=== PATIENT | female | born 1935 | race Caucasian/White ===

== ENCOUNTER → 2016-06-14 | Outpatient (CLI) | payer OTHER, MEDICARE ==
[2015-06-17 12:59] VITALS: BP 146/77; PULSE 81
[~2016-06-14] MED LIST: ALBU1AER9 INH; AMLO-110 PO; ASPI-391 PO; ASPI81TA28 PO; ATEN50TA8 PO; CALCTAB7 PO; COEN1CAP17 PO; DIPH25CA37 PO; LOSA1TAB38 PO; MULT-513 PO; NSP500 PO; RANI150T3 PO
[2016-06-14 12:52] VITALS: BP 118/80; PULSE 72; TEMP 36.6; O2SAT 94
--- NOTE | 2016-06-14 14:01 | Radiation Oncology Follow-Up ---
Radiation Oncology Follow-Up Date of Visit Jun 14, 2016. Reason For Visit Annual follow-up Radiation Completion Date 11/11/14 Diagnosis (1) Malignant neoplasm of left breast, stage 2 Status: Resolved Onset Date: 06/18/2014 Histology Subtype: ductal Stage: ll Permanent Comment: Abnormal routine screening mammogram 05/20/2014 Status post ultrasound-guided biopsy 06/18/2014 invasive ductal carcinoma Estrogen receptor and progesterone receptor negative HER-2/wally positive Status post left partial mastectomy 07/02/2014 stage pT2 pN0 M0 grade 2 Reexcision 08/01/2014 reveals no carcinoma Status post completion of radiation therapy 11/11/2014 received 6120 cGy Last Edited By: Inge Dennis on Nov 27, 2014 16:54 History of Present Illness Ms. Godwin is an 81-year-old female who has a family history of breast cancer. The patient's mother was diagnosed with breast cancer at age 87. She was treated with a mastectomy and at age 89. She has been followed with serial mammograms. On 05/20/2014 patient underwent bilateral screening mammograms. This was compared to her most recent mammogram from 10/30/2012. This new mammogram showed an irregular spiculated 2 cm mass in the left upper outer quadrant. Additional imaging was recommended. On 05/28/2014 patient underwent a unilateral left digital diagnostic mammogram and targeted left ultrasound. This showed an irregular spiculated mass left upper outer quadrant at approximately 2:00 measuring 1.9 x 1.9 cm. Targeted ultrasound of the left upper outer quadrant of the left breast at the 2 o'clock position 3 cm from the nipple identified an irregular hypoechoic solid mass measuring 1.7 x 1.4 x 1.9 cm. This correlates with the mammographic mass and was highly suspicious. This is given a BI-RADS Category 5 with biopsy recommended. On 06/18/2014 patient underwent an ultrasound-guided left breast biopsy. This confirmed an invasive ductal carcinoma, Tea grade 2 of 3, involving multiple cores and measuring at least 0.7 cm in greatest dimension. No lymphovascular invasion is seen. The tumor cells are negative for estrogen receptor (0%) and progesterone receptors (0%) however no internal controls were present for this evaluation and it was recommended that these be repeated. The tumor cells were positive for HER-2/wally (3+). HER-2/wally by FISH analysis was also positive. Case: [id number]. Patient was seen by Dr. Bernabe Mayorga to discuss the surgical treatment options. The patient chose to proceed with a breast conserving therapy. Therefore on 07/06/2014 patient underwent a left breast partial mastectomy and sentinel lymph node biopsy. 2 sentinel nodes were identified and both were negative. 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 This was moderately differentiated with a Bolckow grade 2 of 3. The tumor measured 3.0 x 2.0 x 1.5 cm. The infiltrative ductal adenocarcinoma is located greater than 1 cm from all inked margins. An in situ component is not identified in sections from the tumor mass. 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 There are no lymphovascular invasion and no perineural invasion. Estrogen and progesterone receptors were repeated on this tissue and both were negative with 0% staining. Adequate internal controls were noted. Case: [id number]. The AJCC staging is pT2 pN0(i-) ER negative NM negative HER-2/wally positive. With the question of a possible positive lateral margin Dr. Mayorga is planning on proceeding with a reexcision on August 07. This was performed and there was no residual carcinoma. She returned to our office to undergo radiation therapy. Interim History She's been doing well over this past year. She denies any changes to her breast. She's noted no masses or tenderness no change of the axilla. She has noticed no swelling of her arm. She is up-to-date on mammography. She had a mammogram 01/26/2016. This showed stable mammographic appearance of the left breast status post treatment for breast cancer, without definite mammographic evidence of malignancy. Follow-up bilateral mammogram is due in 6 months to ensure 2 years of stability posttreatment. Allergies Coded Allergies: Ciprofloxacin (Verified Allergy, Severe, ANAPHYLAXIS, 02/03/15) facial swelling Nitrofurantoin (Unverified Allergy, Severe, rash/hives, 02/03/15) possible reaction of macrobid, rash and hives Penicillins (Verified Allergy, Unknown, unknown, 02/03/15) 01/28/15: Patient reported reaction was 65+ years ago and she believes she has tolerated penicillins since then. Home Medications Scheduled Amlodipine (Norvasc), 10 MG PO DAILY Aspirin (Aspirin Ec), 81 MG PO DAILY Atenolol (Tenormin), 50 MG PO DAILY Calcium Carbonate-Vitamin D W/ (Caltrate 600 Plus), 1 TAB PO BID Coenzyme Q10 (Ubidecarenone) (Co Q 10), 100 MG PO DAILY Losartan Potassium (Cozaar), 100 MG PO DAILY Multivitamins/Minerals (Mvi With Minerals), 1 TAB PO DAILY Niacin Ext Rel (Niaspan Ext Rel), 1,000 MG PO BID Scheduled PRN Albuterol (Proair Hfa), 2 PUFFS INH QID PRN for SOB/Wheezing Diphenhydramine Hcl (Benadryl), 25-50 MG PO Q6 PRN for ALLERGIC REACTION Review of Systems Gastrointestinal: Symptoms: WNL Oral: Symptoms: No Problems Other Oral Symptoms: one episode of feeling like throat closing diff swallowing Respiratory: Symptoms: WNL Urinary: Symptoms: WNL Skin: Symptoms: No Problems Breast: Right Upper Arm Measurement: 31.8 Right Mid Arm Measurement: 24.0 Right Wrist Measurement: 15.9 Left Upper Arm Measurement: 34.2 Left Mid Arm Measurement: 26.6 Left Wrist Measurement: 16.4 Arm Dominence: Left Patient Cosmetic Evaluation: Good Staff Cosmetic Evalaluation: Good Physical Exam Vital Signs Date Time Temp Pulse Resp B/P Pulse Ox O2 Delivery O2 Flow Rate FiO2 06/14/16 12:52 36.6 72 18 118/80 94 Pain: Pain Location: None Patient Pain Scale: 0 - 10 Initial Pain Intensity: 0.0 Fatigue: None General Appearance: no apparent distress Eyes: normal inspection, EOMI Neck: no adenopathy Respiratory/Chest: lungs clear, no respiratory distress, no accessory muscle use Breast: Breast examination reveals well-healed incisions of the left breast. There are no masses or tenderness and no axillary adenopathy. She does have an oval area of hyperpigmentation. Using the [place] score cosmesis she has a good outcome. The right breast showed no masses or tenderness no axillary adenopathy. Cardiovascular: regular rate, rhythm, no gallop, no murmur Abdomen: non tender, soft Extremities: no pedal edema Neurologic/Psychiatric: no motor/sensory deficits, alert, normal mood/affect Skin: warm/dry Lymphatic: no adenopathy Additional Studies UNILATERAL LEFT DIGITAL DIAGNOSTIC MAMMOGRAM 3D/2D WITH CAD: 01/26/2016 CLINICAL HISTORY: Third follow-up of the left breast status post treatment for left breast cancer. Comparison is made to exams dated: 07/26/2015 mammogram, 01/21/2015 ultrasound, mammogram, and 05/28/2014 mammogram - [facility]. FINDINGS: Left CC and MLO 2-D digital and tomosynthesis images, spot magnification left CC and ML views were obtained. There are scattered areas of fibroglandular density in the left breast. Current study was also evaluated with a Computer Aided Detection (CAD) system. There is expected architectural distortion with associated surgical clips in the upper outer anterior left breast, at the site of prior lumpectomy. There are stable benign rodlike and punctate microcalcifications scattered throughout the left breast. No new suspicious mass, architectural distortion or cluster of microcalcifications is seen. IMPRESSION: ACR-BI-RADS CATEGORY 3: PROBABLY BENIGN Stable mammographic appearance of the left breast status post treatment for breast cancer, without definite mammographic evidence of malignancy. Follow-up bilateral mammography is due in 6 months to ensure 2 years of stability posttreatment. These results and recommendations were discussed with the patient at the time of the exam. Approximately 10% of breast cancers are not detected with mammography. A negative mammographic report should not delay biopsy if a clinically suggestive mass is present. Julieth Nagy M.D. ay/:01/26/2016 12:01:38 Assessment & Plan Plan: She is scheduled for recheck mammography in July. Continue regular follow-up with Dr. Mayorga and Dr. Fitzgerald. We asked her to return to our office in 1 year. She may call if she has any questions or concerns in the interim. The upper arm measurements were reviewed. Remeasurement showed these to be compatible with the year prior. There is no significant swelling of the left upper extremity. Total Time In Follow-Up I spent 15 minutes speaking to the patient and performing examination. I spent 15 minutes reviewing information in completing this note. Copy To Bernabe Mayorga M.D.; Chandler Edwards M.D.
== END | disposition home or self-care (01) ==
LOC: C.ONC 12:43
PROVIDERS: ATTEND Radiology Radiation Oncology
DX: Z08 Encounter for follow-up examination after completed treatment for malignant neoplasm (principal); Z92.3 Personal history of irradiation; Z85.3 Personal history of malignant neoplasm of breast

== ENCOUNTER → 2016-07-28 | Outpatient (CLI) | payer OTHER, MEDICARE ==
[~2016-07-28] MED LIST changes: -ASPI-391 PO; -RANI150T3 PO
--- NOTE | 2016-07-28 14:32 | MAMMOGRAPHY REPORT ---
BILATERAL DIGITAL DIAGNOSTIC MAMMOGRAM TOMOSYNTHESIS WITH CAD: 07/28/2016 CLINICAL HISTORY: History of left breast cancer status post lumpectomy 07/02/2014. The patient repor ts no current complaints. TECHNIQUE: Breast tomosynthesis in addition to standard 2D mammography was performed. Current study was also evaluated with a Computer Aided Detection (CAD) system. Bilateral CC and MLO 2-D and amy synthesis images and spot magnification left CC and ML views were obtained. COMPARISON: Comparison is made to exams dated: 01/26/2016 mammogram, 07/26/2015 mammogram, 06/18/2014 m ammogram, 05/20/2014 mammogram, 10/30/2012 mammogram, and 10/18/2011 mammogram - [facility] [address]. BREAST COMPOSITION: There are scattered areas of fibroglandular density in both breasts. FINDINGS: There are stable postsurgical changes in the left upper outer quadrant from prior lumpecto my, including stable architectural distortion, density, and surgical clips at the lumpectomy bed. S pot magnification views of the lumpectomy bed demonstrate no suspicious masses or clusters of microc alcifications. The remainder of both breasts are stable compared to prior exams, without suspicious masses, calcifi cations, or areas of architectural distortion noted. Scattered bilateral benign-appearing calcifica tions are not significantly changed. IMPRESSION: ACR BI-RADS CATEGORY 2: BENIGN There is no mammographic evidence of malignancy. A 1 year screening mammogram is recommended. The p atient has been verbally notified of the results. Approximately 10% of breast cancers are not detected with mammography. A negative mammographic repor t should not delay biopsy if a clinically suggestive mass is present. Natasha Tinoco M.D. /:07/28/2016 10:50:34 International Marketing Intern: Trinidad SPEARS)(Carlo), [facility] letter sent: Normal 1/2 BI-RADS Code: ACR BI-RADS Category 2: Benign
== END | disposition home or self-care (01) ==
LOC: C.MAMM 10:17
PROVIDERS: ATTEND Surgery
DX: Z85.3 Personal history of malignant neoplasm of breast (principal)

== ENCOUNTER → 2017-06-19 | Outpatient (CLI) | payer OTHER, MEDICARE ==
[2015-06-17 12:59] VITALS: BP 146/77; PULSE 81
[~2017-06-19] MED LIST changes: +KRIL1000 PO
[2017-06-19 13:02] VITALS: BP 115/79; PULSE 100; TEMP 36.9; O2SAT 95
--- NOTE | 2017-06-19 14:02 | Radiation Oncology Follow-Up ---
Radiation Oncology Follow-Up Date of Visit Jun 19, 2017. Reason For Visit Annual follow-up Radiation Completion Date 11/11/14 Diagnosis (1) Malignant neoplasm of left breast, stage 2 Status: Resolved Onset Date: 06/18/2014 Histology Subtype: ductal Stage: ll Permanent Comment: Abnormal routine screening mammogram 05/20/2014 Status post ultrasound-guided biopsy 06/18/2014 invasive ductal carcinoma Estrogen receptor and progesterone receptor negative HER-2/wally positive Status post left partial mastectomy 07/02/2014 stage pT2 pN0 M0 grade 2 Reexcision 08/01/2014 reveals no carcinoma Status post completion of radiation therapy 11/11/2014 received 6120 cGy Last Edited By: Inge Dennis on Nov 27, 2014 16:54 History of Present Illness Ms. Godwin has a family history of breast cancer. The patient's mother was diagnosed with breast cancer at age 87. She was treated with a mastectomy and at age 89. She has been followed with serial mammograms. On 05/20/2014 patient underwent bilateral screening mammograms. This was compared to her most recent mammogram from 10/30/2012. This new mammogram showed an irregular spiculated 2 cm mass in the left upper outer quadrant. Additional imaging was recommended. On 05/28/2014 patient underwent a unilateral left digital diagnostic mammogram and targeted left ultrasound. This showed an irregular spiculated mass left upper outer quadrant at approximately 2:00 measuring 1.9 x 1.9 cm. Targeted ultrasound of the left upper outer quadrant of the left breast at the 2 o'clock position 3 cm from the nipple identified an irregular hypoechoic solid mass measuring 1.7 x 1.4 x 1.9 cm. This correlates with the mammographic mass and was highly suspicious. This is given a BI-RADS Category 5 with biopsy recommended. On 06/18/2014 patient underwent an ultrasound-guided left breast biopsy. This confirmed an invasive ductal carcinoma, Tea grade 2 of 3, involving multiple cores and measuring at least 0.7 cm in greatest dimension. No lymphovascular invasion is seen. The tumor cells are negative for estrogen receptor (0%) and progesterone receptors (0%) however no internal controls were present for this evaluation and it was recommended that these be repeated. The tumor cells were positive for HER-2/wally (3+). HER-2/wally by FISH analysis was also positive. Case: [id number]. Patient was seen by Dr. Bernabe Mayorga to discuss the surgical treatment options. The patient chose to proceed with a breast conserving therapy. Therefore on 07/06/2014 patient underwent a left breast partial mastectomy and sentinel lymph node biopsy. 2 sentinel nodes were identified and both were negative. 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 This was moderately differentiated with a Tea grade 2 of 3. The tumor measured 3.0 x 2.0 x 1.5 cm. The infiltrative ductal adenocarcinoma is located greater than 1 cm from all inked margins. An in situ component is not identified in sections from the tumor mass. 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 There are no lymphovascular invasion and no perineural invasion. Estrogen and progesterone receptors were repeated on this tissue and both were negative with 0% staining. Adequate internal controls were noted. Case: [id number]. The AJCC staging is pT2 pN0(i-) ER negative [place] negative HER-2/wally positive. With the question of a possible positive lateral margin Dr. Mayorga is planning on proceeding with a reexcision on August 07. This was performed and there was no residual carcinoma. She returned to our office to undergo radiation therapy. Interim History She's been doing well over this past year. She denies any changes to her breast. She denied any areas of tenderness. She is noted no masses and no change of the axilla. She's had no swelling of her arm. She is up-to-date on mammography. She had a mammogram 07/28/2016. There is no mammographic evidence of malignancy. A one-year screening mammogram was recommended. BI- RADS Category 2. She was seen in follow-up by the breast surgeon 11/29/2016. She was discharged from surgical follow-up at that time. Allergies Coded Allergies: Ciprofloxacin (Verified Allergy, Severe, ANAPHYLAXIS, 02/03/15) facial swelling Nitrofurantoin (Unverified Allergy, Severe, rash/hives, 02/03/15) possible reaction of macrobid, rash and hives Penicillins (Verified Allergy, Unknown, unknown, 02/03/15) 01/28/15: Patient reported reaction was 65+ years ago and she believes she has tolerated penicillins since then. Home Medications Scheduled Amlodipine (Norvasc), 10 MG PO DAILY Aspirin (Aspirin Ec), 81 MG PO DAILY Atenolol (Tenormin), 50 MG PO DAILY Calcium Carbonate-Vitamin D W/ (Caltrate 600 Plus), 1 TAB PO BID Coenzyme Q10 (Ubidecarenone) (Co Q 10), 100 MG PO DAILY Krill Oil (Krill Oil), 1 CAP PO DAILY Losartan Potassium (Cozaar), 100 MG PO DAILY Multivitamins/Minerals (Mvi With Minerals), 1 TAB PO DAILY Niacin Ext Rel (Niaspan Ext Rel), 1,000 MG PO BID Scheduled PRN Albuterol (Proair Hfa), 2 PUFFS INH QID PRN for SOB/Wheezing Diphenhydramine Hcl (Benadryl), 25-50 MG PO Q6 PRN for ALLERGIC REACTION Review of Systems Gastrointestinal: Symptoms: WNL Oral: Symptoms: No Problems Other Oral Symptoms: one episode of feeling like throat closing diff swallowing Respiratory: Symptoms: SOB With Exertion Urinary: Symptoms: WNL Skin: Symptoms: No Problems Breast: Right Upper Arm Measurement: 32.8 Right Mid Arm Measurement: 24.5 Right Wrist Measurement: 16.0 Left Upper Arm Measurement: 32.8 Left Mid Arm Measurement: 26.8 Left Wrist Measurement: 17.0 Arm Dominence: Left Patient Cosmetic Evaluation: Good Staff Cosmetic Evalaluation: Good Physical Exam Vital Signs Date Time Temp Pulse Resp B/P (MAP) Pulse Ox O2 Delivery O2 Flow Rate FiO2 06/19/17 13:02 36.9 100 20 115/79 95 Fatigue: None General Appearance: no apparent distress Eyes: normal inspection, EOMI ENT: normal ENT inspection, hearing grossly normal Neck: no adenopathy, thyroid normal Respiratory/Chest: lungs clear, no respiratory distress, no accessory muscle use Breast: Breast examination reveals well-healed incisions of the left breast. There is a 4 cm area of telangiectasia in the lateral aspect of the breast. There are no masses or tenderness no axillary adenopathy. She has no skin retractions or nipple changes. Using the [place] score cosmesis she has a good outcome. The right breast showed no masses or tenderness and no axillary adenopathy. Cardiovascular: regular rate, rhythm, no gallop, no murmur Abdomen: non tender Extremities: no pedal edema Neurologic/Psychiatric: no motor/sensory deficits, alert, normal mood/affect Skin: warm/dry Pain Management Patient Reports Pain: No Patient Preferred Pain Scale: 0 - 10 Initial Pain Intensity: 0.0 Pain Management Plan She denied pain therefore requires no pain management. Laboratory Laboratory Results: not applicable Pathology Pathology Results: not applicable Imaging Imaging Studies: were reviewed, and pertinent findings noted below Imaging Comments Patient: CODY GODWIN [facility] Rec: [id number] Address1: [address] [place] [address] [facility]: [id number] Date: 1935 Sex: F Ref Phy: Jeri Miller D.O. Att Phy: Bernabe Mayorga M.D. Abena Phy: Jeri Miller D.O. Inter Phy: Natasha Tinoco MD [facility] Zip: [place] [address] SC: C.MAMM Report #: [id number] Sales Service Supervisor: VENUS Diagnosis: 6 MO F/U BILATERAL Service Date: 07/28/16 MNE: [id number] Ordering Dr: Bernabe Mayorga M.D. CC: Bernabe aMyorga M.D. CONF: DICTATED BY: Natasha Tinoco MD MAMMOGRAPHY REPORT BILATERAL DIGITAL DIAGNOSTIC MAMMOGRAM TOMOSYNTHESIS WITH CAD: 07/28/2016 CLINICAL HISTORY: History of left breast cancer status post lumpectomy 2014. The patient reports no current complaints. TECHNIQUE: Breast tomosynthesis in addition to standard 2D mammography was performed. Current study was also evaluated with a Computer Aided Detection (CAD ) system. Bilateral CC and MLO 2-D and tomosynthesis images and spot magnification left CC and ML views were obtained. COMPARISON: Comparison is made to exams dated: 01/26/2016 mammogram, 07/26/2015 mammogram, 06/18/2014 mammogram, 05/20/2014 mammogram, 10/30/2012 mammogram, and 2011 mammogram - [facility]. BREAST COMPOSITION: There are scattered areas of fibroglandular density in both breasts. FINDINGS: There are stable postsurgical changes in the left upper outer quadrant from prior lumpectomy, including stable architectural distortion, density, and surgical clips at the lumpectomy bed. Spot magnification views of the lumpectomy bed demonstrate no suspicious masses or clusters of microcalcifications. The remainder of both breasts are stable compared to prior exams, without suspicious masses, calcifications, or areas of architectural distortion noted. Scattered bilateral benign-appearing calcifications are not significantly changed. IMPRESSION: ACR BI-RADS CATEGORY 2: BENIGN There is no mammographic evidence of malignancy. A 1 year screening mammogram is recommended. The patient has been verbally notified of the results. Approximately 10% of breast cancers are not detected with mammography. A negative mammographic report should not delay biopsy if a clinically suggestive mass is present. Natasha Tinoco M.D. ah/:07/28/2016 10:50:34 Refrigeration Mechanic Helper: Trinidad SPEARS)(Carlo), [facility] letter sent: Normal 1/2 BI-RADS Code: ACR BI-RADS Category 2: Benign Dictated by: Natasha Tinoco MD Signed by: Natasha Tinoco MD Assessment & Plan Plan: Continue annual mammography. She does have a mammogram scheduled for July. Continue follow-up with her primary care physician. We asked her to return to our office in 1 year. She may call if she has any questions or concerns in the interim. Total Time In Follow-Up I spent 20 minutes speaking to the patient and performing examination. I spent 15 minutes reviewing information and completing this note. Copy To Jeri Miller D.O.
== END | disposition home or self-care (01) ==
LOC: C.ONC 12:44
PROVIDERS: ATTEND Physician Assistant Medical
DX: Z08 Encounter for follow-up examination after completed treatment for malignant neoplasm (principal); Z92.3 Personal history of irradiation; Z85.3 Personal history of malignant neoplasm of breast

== ENCOUNTER → 2017-07-31 | Outpatient (CLI) | payer OTHER, MEDICARE ==
--- NOTE | 2017-07-31 14:57 | MAMMOGRAPHY REPORT ---
BILATERAL DIGITAL SCREENING MAMMOGRAM TOMOSYNTHESIS WITH CAD: 07/31/2017 CLINICAL HISTORY: Routine screening. Patient has no complaints. TECHNIQUE: Breast tomosynthesis in addition to standard 2D mammography was performed. Current study was also evaluated with a Computer Aided Detection (CAD) system. COMPARISON: Comparison is made to exams dated: 07/28/2016 mammogram, 01/26/2016 mammogram, 07/26/2015 m ammogram, 01/21/2015 ultrasound, 01/21/2015 mammogram, and 06/18/2014 mammogram - [facility] enter. BREAST COMPOSITION: There are scattered areas of fibroglandular density in both breasts. FINDINGS: No suspicious masses, calcifications, or areas of architectural distortion are noted in ei ther breast. There has been no significant interval change compared to prior exams. There are stable post surgical changes in the left upper outer anterior breast from prior lumpectomy. Scattered bila teral benign-appearing calcifications are again noted. IMPRESSION: ACR BI-RADS CATEGORY 2: BENIGN There is no mammographic evidence of malignancy. A 1 year screening mammogram is recommended. The pa tient will receive written notification of the results. Approximately 10% of breast cancers are not detected with mammography. A negative mammographic report should not delay biopsy if a clinically suggestive mass is present. Natasha Tinoco M.D. /:07/31/2017 11:40:57 Strike Warfare/Missile Systems Officer: Marcelina SPEARS)(Carlo), [facility] letter sent: Normal 1/2 BI-RADS Code: ACR BI-RADS Category 2: Benign
== END | disposition home or self-care (01) ==
LOC: C.MAMM 10:09
PROVIDERS: ATTEND Family Medicine
DX: Z12.31 Encounter for screening mammogram for malignant neoplasm of breast (principal); Z85.3 Personal history of malignant neoplasm of breast